=== PATIENT | female | born 1960 | race Caucasian/White ===

== ENCOUNTER → 2018-11-08 | Outpatient (CLI) | payer MEDICARE, OTHER ==
--- NOTE | 2018-11-09 15:45 | MM ---
Reason for exam: additional evaluation requested from prior study. Last mammogram was performed 3 years and 8 months ago. History: Patient is postmenopausal and has history of other cancer at age 52. Family history of breast cancer in maternal grandmother, breast cancer in paternal grandmother, and breast cancer in paternal aunt. Benign MG stereo VAD BX LT of the left breast, March 14, 2015. Patient had Lymphoma at age 55. Physical Findings: Nurse did not find any significant physical abnormalities on exam. MG 3D Diag Mammo W/Cad QING Bilateral CC and MLO view(s) were taken. Prior study comparison: March 01, 2015, left breast MG work up mamm w CAD LT. February 16, 2015, bilateral MG screening mammo w CAD. The breast tissue is heterogeneously dense. This may lower the sensitivity of mammography. There are benign-appearing round vascular calcification bilaterally. Chronic nodularity left breast. No discrete abnormality. These results were verbally communicated with the patient and result sheet given to the patient on 11/08/18. ASSESSMENT: Benign, BI-RAD 2 RECOMMENDATION: Routine screening mammogram of both breasts in 1 year.
== END | disposition home or self-care (01) ==
LOC: RADMAMWWP 09:00
PROVIDERS: ATTEND Internal Medicine
DX: R92.8 Other abnormal and inconclusive findings on diagnostic imaging of breast (principal)
CPT/HCPCS: 77066; G0279; 77062

== ENCOUNTER → 2019-12-09 | Outpatient (CLI) | payer MEDICARE, OTHER ==
--- NOTE | 2019-12-12 08:22 | MM ---
Reason for exam: screening (asymptomatic). Last mammogram was performed 1 year and 1 month ago. History: Patient is postmenopausal and has history of other cancer at age 52. Family history of breast cancer in maternal grandmother, breast cancer in paternal grandmother, and breast cancer in paternal aunt. Benign MG stereo VAD BX LT of the left breast, March 14, 2015. Physical Findings: A clinical breast exam by your physician is recommended on an annual basis and results should be correlated with mammographic findings. MG Screening Mammo w CAD Bilateral CC and MLO view(s) were taken. Prior study comparison: November 08, 2018, bilateral MG 3d diag mammo w/cad QING. March 01, 2015, left breast MG work up mamm w CAD LT. The breast tissue is heterogeneously dense. This may lower the sensitivity of mammography. No suspicious abnormality. Left biopsy marker noted. No significant changes when compared with prior studies. ASSESSMENT: Negative, BI-RAD 1 RECOMMENDATION: Routine screening mammogram of both breasts in 1 year.
== END | disposition home or self-care (01) ==
LOC: RADMAMWWP 10:45
PROVIDERS: ATTEND Internal Medicine
DX: Z12.31 Encounter for screening mammogram for malignant neoplasm of breast (principal)
CPT/HCPCS: 77067

== ENCOUNTER 2021-09-14 08:18 | Emergency (ER) | payer MEDICARE, OTHER ==
[2021-09-14] MEDS ORDERED: SODIUM CHLORIDE 0.9% 500 ML 500 ML IV STA (08:31)
--- NOTE | 2021-09-14 08:36 | ED ---
General Adult HPI - General Chief complaint: Upper Respiratory Infection Stated complaint: Covid+ Time Seen by Provider: 09/14/21 08:20 Source: patient, RN notes reviewed, old records reviewed Mode of arrival: wheelchair Limitations: no limitations - History of Present Illness Initial comments: This a 60-year-old female presents emergency Department with a past medical history significant for some cognitive impairment and history of non-Hodgkin's lymphoma. Patient states she started having symptoms on Thursday of the upper respiratory infection and on she lost her taste that she was tested for COVID and she tested positive. Patient states today she was having a bowel movement she passed out momentarily and she wanted to come in to be evaluated and get the antibiotics for the COVID. Patient denies any shortness of breath or chest pain or palpitations. Patient denies any other medical problems in the ones listed. Patient states she takes no medications. Patient denies smoking. Patient states after she passed out she woke up and felt back to her baseline. Patient states she bumped her cheek when she passed out but it is only minimally tender this point she has no problems seeing she is no double vision. - Related Data Home Medications Medication Instructions Recorded Confirmed Cetirizine HCl 10 mg PO BID 09/14/21 09/14/21 Donepezil HCl [Aricept] 5 mg PO HS 09/14/21 09/14/21 Omeprazole 40 mg PO HS 09/14/21 09/14/21 Simvastatin [Zocor] 20 mg PO HS 09/14/21 09/14/21 Allergies Allergy/AdvReac Type Severity Reaction Status Date / Time lorazepam [From Ativan] Allergy Confusion Verified 09/14/21 09:40 Review of Systems ROS Statement: Those systems with pertinent positive or pertinent negative responses have been documented in the HPI. ROS Other: All systems not noted in ROS Statement are negative. Past Medical History Past Medical History: Cancer, GERD/Reflux, Memory Impairment, Renal Disease Additional Past Medical History / Comment(s): HX ANEMIA. HX NON HODGKINS LYMPHONA 2009 HAD CHEMO IN 2010. MEMORY IMPAIRMENT R/T COMA CAUSED BY CHEMO PER SISTER 2011. PEPTIC ULCER DISEASE History of Any Multi-Drug Resistant Organisms: C-DIFF Date of last positivie culture/infection: MDRO Source:: STOOL Past Surgical History: Orthopedic Surgery, Tubal Ligation Additional Past Surgical History / Comment(s): MEDIPORT INSERTED AND REMOVED. PEG TUBE INSERTED AND REMOVED. SPLEENECTOMY. ORIF RT WRIST. BRONCHOSCOPY. TRACHEOSTOMY/NOW CLOSED Past Anesthesia/Blood Transfusion Reactions: No Reported Reaction Past Psychological History: Anxiety Smoking Status: Never smoker Past Alcohol Use History: None Reported Past Drug Use History: None Reported - Past Family History Father Family Medical History: Cancer Mother Family Medical History: Cancer Brother(s) Family Medical History: Cancer Sister(s) Family Medical History: Cancer General Exam - General Exam Comments Initial Comments: GENERAL: Patient is well-developed and well-nourished. Patient is nontoxic and well- hydrated and is in no acute distress. ENT: Neck is soft and supple. No significant lymphadenopathy is noted. Oropharynx is clear. Moist mucous membranes. Neck has full range of motion without eliciting any pain. Patient's got a small contusion on the left cheek EYES: The sclera were anicteric and conjunctiva were pink and moist. Extraocular movements were intact and pupils were equal round and reactive to light. Eyelids were unremarkable. PULMONARY: Unlabored respirations. Good breath sounds bilaterally. No audible rales rhonchi or wheezing was noted. CARDIOVASCULAR: There is a regular rate and rhythm without any murmurs gallops or rubs. ABDOMEN: Soft and nontender with normal bowel sounds. SKIN: Skin is clear with no lesions or rashes and otherwise unremarkable. NEUROLOGIC: Patient is alert and oriented x3. Cranial nerves II through XII are grossly intact. Motor and sensory are also intact. Normal speech, volume and content. Symmetrical smile. MUSCULOSKELETAL: Normal extremities with adequate strength and full range of motion. LYMPHATICS: No significant lymphadenopathy is noted PSYCHIATRIC: Normal psychiatric evaluation. Limitations: no limitations Course Vital Signs 09/14/21 09/14/21 09/14/21 08:19 08:35 08:44 Temperature 97.8 F Pulse Rate 83 Pulse Rate [ 82 Sitting] Pulse Rate [ 99 Standing] Pulse Rate [ 88 Supine] Respiratory 19 Rate Blood Pressure 122/73 Blood Pressure 123/93 [Sitting] Blood Pressure 117/89 [Standing] Blood Pressure 126/89 [Supine] O2 Sat by Pulse 92 L 98 Oximetry Medical Decision Making - Medical Decision Making EKG shows normal sinus rhythm at 75 bpm OR interval 160 QRS is 82 QT interval 428 QTC is 477. Patient's EKG shows no ST segment elevation or depression. Patient has Q waves in leads 3 and aVF. Chest x-ray shows no acute abnormality. Patient received monoclonal antibodies in the emergency department - Lab Data Result diagrams: 09/14/21 08:43 09/14/21 08:43 Lab Results 09/14/21 09/14/21 09/14/21 Range/Units 08:43 08:43 08:43 WBC 8.1 (3.8-10.6) k/uL RBC 4.96 (3.80-5.40) m/uL Hgb 14.6 (11.4-16.0) gm/dL Hct 45.5 (34.0-46.0) % MCV 91.8 (80.0-100.0) fL MCH 29.5 (25.0-35.0) pg MCHC 32.1 (31.0-37.0) g/dL RDW 12.8 (11.5-15.5) % Plt Count 238 (150-450) k/uL MPV 8.2 Neutrophils % 66 % Lymphocytes % 20 % Monocytes % 9 % Eosinophils % 1 % Basophils % 1 % Neutrophils # 5.3 (1.3-7.7) k/uL Lymphocytes # 1.6 (1.0-4.8) k/uL Monocytes # 0.8 (0-1.0) k/uL Eosinophils # 0.1 (0-0.7) k/uL Basophils # 0.1 (0-0.2) k/uL Sodium 138 (137-145) mmol/L Potassium 5.1 (3.5-5.1) mmol/L Chloride 107 (98-107) mmol/L Carbon Dioxide 24 (22-30) mmol/L Anion Gap 7 mmol/L BUN 18 H (7-17) mg/dL Creatinine 1.35 H (0.52-1.04) mg/dL Est GFR (CKD-EPI)AfAm 50 (>60 ml/min/1.73 sqM) Est GFR (CKD-EPI)NonAf 43 (>60 ml/min/1.73 sqM) Glucose 109 H (74-99) mg/dL Calcium 10.0 (8.4-10.2) mg/dL Magnesium 1.9 (1.6-2.3) mg/dL Total Bilirubin 0.6 (0.2-1.3) mg/dL AST 28 (14-36) U/L ALT 13 (4-34) U/L Alkaline Phosphatase 163 H (38-126) U/L Troponin I <0.012 (0.000-0.034) ng/mL Total Protein 7.9 (6.3-8.2) g/dL Albumin 4.3 (3.5-5.0) g/dL Disposition Clinical Impression: Vasovagal syncope, COVID Disposition: HOME SELF-CARE Condition: Good Instructions (If sedation given, give patient instructions): Syncope (ED), Coronavirus Disease 2019 (COVID-19) Additional Instructions: Patient is to return for any difficulty breathing. Patient is also to return she's having any chest pain or palpitations. Is patient prescribed a controlled substance at d/c from ED?: No Referrals: Erich Cohen MD [Primary Care Provider] - 1-2 days Time of Disposition: 09:45
[2021-09-14 08:58] LABS: Basophils # (A) 0.1 k/uL (0-0.2); Basophils % (A) 1 %; Eosinophils # (A) 0.1 k/uL (0-0.7); Eosinophils % (A) 1 %; HCT 45.5 % (34.0-46.0); HGB 14.6 gm/dL (11.4-16.0); Lymphocytes # (A) 1.6 k/uL (1.0-4.8); Lymphocytes % (A) 20 %; MCH 29.5 pg (25.0-35.0); MCHC 32.1 g/dL (31.0-37.0); MCV 91.8 fL (80.0-100.0); Mean Platelet Volume 8.2; Monocytes # (A) 0.8 k/uL (0-1.0); Monocytes % (A) 9 %; Neutrophils # (A) 5.3 k/uL (1.3-7.7); Neutrophils % (A) 66 %; Platelet Count 238 k/uL (150-450); RBC 4.96 m/uL (3.80-5.40); RDW 12.8 % (11.5-15.5); WBC 8.1 k/uL (3.8-10.6)
[2021-09-14 09:12] LABS: Albumin 4.3 g/dL (3.5-5.0); Magnesium 1.9 mg/dL (1.6-2.3); Potassium 5.1 mmol/L (3.5-5.1); Total Bilirubin 0.6 mg/dL (0.2-1.3); Total Protein 7.9 g/dL (6.3-8.2)
[2021-09-14] MEDS ORDERED: CASIRIVIMAB/IMDEVIMAB (EUA) 1,200 MG in SODIUM CHLORIDE 0.9% 100 ML IVPB ONE (09:15)
--- NOTE | 2021-09-14 09:19 | XR ---
EXAMINATION TYPE: XR chest 1V portable DATE OF EXAM: 09/14/2021 COMPARISON: 11/28/2012 INDICATION: Chest pain TECHNIQUE: Single frontal view of the chest is obtained. FINDINGS: The heart size is normal. The pulmonary vasculature is normal. There may be some mild blunting of the left costophrenic angle. This may be chronic. IMPRESSION: 1. Mild blunting left costophrenic angle may be chronic. 2. An acute pulmonary process is not otherwise evident.
[2021-09-14] MEDS ORDERED: SODIUM CHLORIDE 0.9% 50 ML IVPB ONE (10:00)
[2021-09-14 10:59] VITALS: BP 126/88; PULSE 86; RESP 16; TEMP 98.8
== END 2021-09-14 10:59 | disposition home or self-care (01) ==
LOC: EC 08:18
DX: U07.1 COVID-19 (principal); R55 Syncope and collapse; K21.9 Gastro-esophageal reflux disease without esophagitis; Z79.899 Other long term (current) drug therapy
CPT/HCPCS: 36415; 93005; 80053; 83735; 84484; 85025; 71045; 99284; 96365; 96361; Q0243

== ENCOUNTER → 2022-05-23 | Outpatient (CLI) | payer MEDICARE ==
--- NOTE | 2022-05-23 09:35 | BD ---
EXAMINATION TYPE: Axial Bone Density DATE OF EXAM: 05/23/2022 COMPARISON: NONE CLINICAL HISTORY: 61 year old Female. ICD-10 CODE: Z78.[address] Height: 67 Weight: 193.1 FRAX RISK QUESTIONS: Alcohol (3 or more units per day): no Family History (Parent hip fracture): no Glucocorticoids (More than 3mos): no (Ex: prednisone, prednisolone, methylprednisolone, dexamethasone, and hydrocortisone). History of Fracture in Adulthood: yes Secondary Osteoporosis: 1. Type 1 Diabetes: no 2. Hyperthyroidism: no 3. Menopause before 45: no 4. Malnutrition: no 5. Chronic liver disease: no Rheumatoid Arthritis: no Current Tobacco Use: no RISK FACTORS HISTORY OF: Surgery to Spine/Hip(right/left)/Wrist (right/left): no Family History of Osteoporosis: no Active: no Diet low in dairy products/other sources of calcium: yes Postmenopausal woman: yes Lost more than 2 inches in height since high school: yes MEDICATIONS: Additional History: EXAM MEASUREMENTS: Bone mineral densitometry was performed using the [employer] System. Bone mineral density as measured about the Lumbar spine is: ----- L1-L4(G/cm2): 0.939 T Score Values are as follows: ----- L1: -2.1 ----- L2: -2.8 ----- L3: -1.3 ----- L4: -1.8 ----- L1-L4: -2.0 Bone mineral density : baseline Bone mineral density about the R hip (g/cm2): 0.722 Bone mineral density about the L hip (g/cm2): 0.669 T Score values are as follows: -----R Neck: -2.3 -----L Neck: -2.7 -----R Total: -2.2 -----L Total: -2.5 Bone mineral density : baseline FRAX%s: The graph provided illustrates a 20.5% chance for a major osteoporotic fx and a 4.6% chance f or the hips probability for fx in 10 years time. IMPRESSION: Osteoporosis (T Score less than -2.5). There is increased fracture risk and therapy is usually indicated based on age. Re-Screen 1-2 years. NOTE: T-SCORE=SD OF THE YOUNG ADULT MEAN.
--- NOTE | 2022-05-26 08:08 | MM ---
Reason for Exam: Screening (asymptomatic). Last mammogram was performed 2 year(s) and 5 month(s) ago. Patient History: Menarche at age 16. First Full-Term at age 22. Hysterectomy at age 54. Postmenopausal. Patient has history of breast feeding. Other cancer, age 52. 03/14/2015, Benign Core Biopsy on the left side. Paternal grandmother had breast cancer. Maternal grandmother had breast cancer. Paternal aunt had breast cancer. Risk Values: Rosaline 5 year model risk: 1.4%. NCI Lifetime model risk: 7.1%. Prior Study Comparison: 02/16/2015 Bilateral Screening Mammogram, [facility]. 03/01/2015 Left Diagnostic Mammogram, [facility]. 11/08/2018 Bilateral Diagnostic Mammogram, [facility]. 12/09/2019 Bilateral Screening Mammogram, [facility]. Tissue Density: The breast tissue is heterogeneously dense. This may lower the sensitivity of mammography. Findings: Analyzed By CAD. 4 markers in the left breast. Benign vascular calcifications present. No suspicious groups of microcalcifications, spiculated or lobular masses, architectural distortion or other secondary signs of malignancy are mammographically apparent. Overall Assessment: Benign, BI-RAD 2 Management: Screening Mammogram of both breasts in 1 year. A negative mammogram report should not preclude additional follow up of suspicious palpable abnormalities. Patient should continue monthly self breast exam. A clinical breast exam by your physician is recommended on an annual basis and results should be correlated with mammographic findings. Electronically signed and approved by: Juve Hoyt D.O. Radiologis
== END | disposition home or self-care (01) ==
LOC: RADMAMWWP 06:45
PROVIDERS: ATTEND Internal Medicine
DX: Z12.31 Encounter for screening mammogram for malignant neoplasm of breast (principal); Z78.0 Asymptomatic menopausal state; Z80.3 Family history of malignant neoplasm of breast
CPT/HCPCS: 77063; 77067; 77080

== ENCOUNTER → 2022-05-26 | Outpatient (CLI) | payer MEDICARE ==
--- NOTE | 2022-05-27 10:12 | CA ---
Transthoracic Echo Report Name: Mansi Johnson Age: 61 Gender: F : 1960 Exam Date: 05/26/2022 08:33 Exam Location: [facility] Ht (in): 67 Wt (lb): 194 Ordering Physician: Erich Cohen MD Attending/Referring Phys: Slot Machine Key Person Mahsa Bermudez RDCS Procedure CPT: Indications: G45.9 TIA Cardiac Hx: Technical Quality: Good Contrast 1: Total Dose (mL): Contrast 2: Total Dose (mL): MEASUREMENTS (Male / Female) Normal Values 2D ECHO LV Diastolic Diameter PLAX 5.0 cm 4.2 - 5.9 / 3.9 - 5.3 cm LV Systolic Diameter PLAX 3.5 cm IVS Diastolic Thickness 1.1 cm 0.6 - 1.0 / 0.6 - 0.9 cm LVPW Diastolic Thickness 1.0 cm 0.6 - 1.0 / 0.6 - 0.9 cm LV Relative Wall Thickness 0.4 RV Internal Dim ED PLAX 3.3 cm LA Systolic Diameter LX 4.0 cm 3.0 - 4.0 / 2.7 - 3.8 cm LA Volume 40.0 cm??? 18 - 58 / 22 - 52 cm??? M-MODE Aortic Root Diameter MM 3.2 cm MV E Point Septal Separation 0.6 cm AV Cusp Separation MM 2.2 cm DOPPLER AV Peak Velocity 108.5 cm/s AV Peak Gradient 4.7 mmHg MV Area PHT 2.9 cm??? Mitral E Point Velocity 94.4 cm/s Mitral A Point Velocity 113.3 cm/s Mitral E to A Ratio 0.8 MV Deceleration Time 263.3 ms MV E' Velocity 7.4 cm/s Mitral E to MV E' Ratio 12.8 TR Peak Velocity 238.2 cm/s TR Peak Gradient 22.7 mmHg Right Ventricular Systolic Press 27.3 mmHg FINDINGS Left Ventricle Left ventricular ejection fraction is estimated at 55-60 %. Left ventricular cavity size normal. Left ventricular wall thickness normal. Right Ventricle Mild right ventricular dilatation. Right ventricular systolic pressure within normal limits. Right Atrium Normal right atrial size. Left Atrium Normal left atrial size. No evidence for an atrial septal defect. Mitral Valve Structurally normal mitral valve. No mitral stenosis, regurgitation or prolapse. Aortic Valve Trileaflet aortic valve. No aortic valve stenosis or regurgitation. Tricuspid Valve Mild tricuspid regurgitation. Pulmonic Valve Mild pulmonic regurgitation. Pericardium Normal pericardium. No pericardial effusion. Aorta Normal size aortic root and proximal ascending aorta. CONCLUSIONS Normal LV size and systolic function. No significant abnormality in the Doppler exam. No pericardial effusion Previewed by: Dr. Shelly Ann MD (Electronically Signed) Final Date: 27 May 2022 10:12
== END | disposition home or self-care (01) ==
LOC: RADECHMAIN 07:51
PROVIDERS: ATTEND Internal Medicine
DX: I07.1 Rheumatic tricuspid insufficiency (principal)
CPT/HCPCS: 93306

== ENCOUNTER → 2022-08-18 | Outpatient (CLI) | payer MEDICARE, OTHER ==
--- NOTE | 2022-08-18 10:34 | US ---
EXAMINATION TYPE: US abdomen complete DATE OF EXAM: 08/18/2022 COMPARISON: US CLINICAL HISTORY: N18.30 ckd stage 3. CKD. Hx splenectomy, stomach surgery in 2010. TECHNIQUE: Multiple sonographic images of the abdomen are obtained. FINDINGS: EXAM MEASUREMENTS: Liver Length: 14.1 cm Gallbladder Wall: 0.20 cm CBD: 0.61 cm Right Kidney: 9.2 x 4.9 x 4.6 cm Left Kidney: 9.0 x 4.7 x 4.9 cm AIR LIFT OPERATOR NOTES: Limited due to gas and patient body habitus. Pancreas: Limited Liver: Appears very coarse. Images taken intercostally. No definitive lesion identified. Gallbladder: Appears anechoic. No pericholecystic fluid or wall thickening. Evidence for sonographic Messina's sign: No CBD: Measures upper limits. Spleen: Surgically absent Right Kidney: Anechoic connective appearance medially, probable hydro. Seen post void as well. No def initive contour deforming mass. No shadowing calculi. Left Kidney: Anechoic connective appearance medially, probable hydro. Seen post void as well. No defi nitive contour deforming mass. No shadowing calculi. Upper IVC: Limited Abd Aorta: Appears wnl IMPRESSION: 1. Probable mild bilateral hydronephrosis. No renal shadowing calculi. Consider further evaluation w ith CT abdomen pelvis. 2. Spleen is surgically absent.
== END | disposition home or self-care (01) ==
LOC: RADUSWWP 07:55
PROVIDERS: ATTEND Internal Medicine
DX: N18.30 Chronic kidney disease, stage 3 unspecified (principal)
CPT/HCPCS: 76700

== ENCOUNTER → 2022-09-03 | Outpatient (CLI) | payer MEDICARE, OTHER ==
--- NOTE | 2022-09-03 20:30 | CT ---
EXAMINATION TYPE: CT abdomen pelvis wo con CT DLP: 587.40 mGycm, Automated exposure control for dose reduction was used. DATE OF EXAM: 09/03/2022 5:47 PM COMPARISON: None CLINICAL INDICATION:Female, 61 years old with history of N13.30 UNSPECIFIED HYDRONEPHROSIS; hydroneph rosis. TECHNIQUE: Axial CT of the abdomen and pelvis. Sagittal and coronal reformats were created on a [employer] workstation. Contrast used: None Oral contrast used: without Oral Contrast FINDINGS: LOWER CHEST: Left lower lobe calcified granuloma. Mild cardiomegaly. ABDOMEN LIVER: Unremarkable GALLBLADDER AND BILE DUCTS: Unremarkable. PANCREAS: Unremarkable. SPLEEN: Unremarkable. ADRENAL GLANDS: Unremarkable. KIDNEYS AND URETERS: No evidence of hydronephrosis or renal calculus. Multiple cysts are seen in the renal sinuses left greater than right likely representing peripelvic renal cysts. PELVIS BLADDER: Unremarkable REPRODUCTIVE: The uterus is surgically absent. ABDOMEN & PELVIS STOMACH AND BOWEL: No evidence of bowel obstruction. Small hiatal hernia. Surgical changes gastric [place] men. Scattered clonic diverticula are present. Scattered small bowel feces seen throughout the abdome n. PERITONEUM: No evidence of pneumoperitoneum or free fluid. VASCULATURE: No evidence of aortic aneurysm. Mild atherosclerosis of the arterial vasculature. MUSCULOSKELETAL: No acute osseous abnormalities, multilevel disc degeneration changes. LYMPH NODES: No gross evidence for lymphadenopathy. SOFT TISSUE/ABDOMINAL WALL: Multiple ventral wall hernias containing fat measuring up to 5.2 x 3.4 cm more superiorly. IMPRESSION: 1. No evidence for acute abdominal process. 2. No evidence of hydronephrosis, bilateral peripelvic renal cysts. 3. Multiple ventral wall hernias containing fat. 4. Postsurgical changes with gastric lumen with small hiatal hernia. 5. Colonic diverticulosis.
== END | disposition home or self-care (01) ==
LOC: RADCTMAIN 17:14
PROVIDERS: ATTEND Urology
DX: K57.30 Diverticulosis of large intestine without perforation or abscess without bleeding (principal); K44.9 Diaphragmatic hernia without obstruction or gangrene
CPT/HCPCS: 74176

== ENCOUNTER → 2022-09-29 | Outpatient (CLI) | payer MEDICARE, OTHER ==
[2022-09-29 18:42] LABS: ALT 16 U/L (8-44); AST 25 U/L (13-35); African American GFR (CKD) 50.2 (60.0-200.0); Albumin 4.5 g/dL (3.8-4.9); Albumin/Globulin Ratio 1.66 (1.60-3.17); Alkaline Phosphatase 126 U/L (41-126); BUN/Creat Ratio 12.41 Ratio (12.00-20.00); Blood Urea Nitrogen 16.5 mg/dL (9.0-27.0); Calcium 9.2 mg/dL (8.7-10.3); Carbon Dioxide 23.3 mmol/L (20.0-27.5); Chloride 108 mmol/L (96-109); Chol/HDL Ratio 2.39 Ratio; Globulin 2.7 g/dL (1.6-3.3); Glucose 99 mg/dL (70-110); LDL Cholesterol,Calculated 86.1 mg/dL (0.0-131.0); Non-African American GFR(CKD) 43.3 (60.0-200.0); Potassium 5.2 mmol/L (3.5-5.5); Sodium 141 mmol/L (135-145); Total Protein 7.2 g/dL (6.2-8.2)
== END | disposition home or self-care (01) ==
LOC: LABWHC1 11:30
PROVIDERS: ATTEND Internal Medicine Interventional Cardiology
DX: I10 Essential (primary) hypertension (principal); E78.2 Mixed hyperlipidemia
CPT/HCPCS: 36415; 80053; 80061

== ENCOUNTER → 2023-04-08 | Outpatient (CLI) | payer OTHER, MEDICARE ==
[2023-04-08 16:13] LABS: ALT 9 U/L (8-44); AST 19 U/L (13-35); Albumin 4.3 d/dL (3.8-4.9); Albumin/Globulin Ratio 1.48 Ratio (1.60-3.17); Alkaline Phosphatase 131 U/L (41-126); BUN/Creat Ratio 13.67 Ratio (12.00-20.00); Blood Urea Nitrogen 20.5 mg/dL (9.0-27.0); Carbon Dioxide 23.2 mmol/L (21.6-31.8); Chloride 108 mmol/L (96-109); Chol/HDL Ratio 2.08 Ratio; Globulin 2.9 d/dL (1.6-3.3); Glucose 94 mg/dL (70-110); LDL Cholesterol,Calculated 61.2 mg/dL (0.0-131.0); Sodium 141 mmol/L (135-145); Total Bilirubin 0.4 mg/dL (0.3-1.2); Total Protein 7.2 d/dL (6.2-8.2); VLDL Calculation 17.58 mg/dL (5.00-40.00)
== END | disposition home or self-care (01) ==
LOC: LABWHC1 10:21
PROVIDERS: ATTEND Internal Medicine Interventional Cardiology
DX: E78.2 Mixed hyperlipidemia (principal)
CPT/HCPCS: 36415; 80053; 80061

== ENCOUNTER → 2023-04-24 | Outpatient (CLI) | payer MEDICARE, OTHER ==
[~2023-04-24] MED LIST: DENOSUMAB 60 MG/ML 1 ML SYRINGE SQ NR
[2023-04-24 11:19] VITALS: BP 125/82; PULSE 74; RESP 16; TEMP 97.6
== END ==
LOC: PROCWHC3 11:07
PROVIDERS: ATTEND Internal Medicine
DX: M81.0 Age-related osteoporosis without current pathological fracture (principal)
CPT/HCPCS: 96372; J0897

== ENCOUNTER → 2023-10-01 | Outpatient (CLI) | payer MEDICARE, OTHER ==
[2023-10-01 16:43] LABS: ALT 11 U/L (8-44); AST 19 U/L (13-35); Chol/HDL Ratio 2.22 Ratio; LDL Cholesterol,Calculated 71.1 mg/dL (0.0-131.0)
== END | disposition home or self-care (01) ==
LOC: LABWHC1 09:47
PROVIDERS: ATTEND Internal Medicine Interventional Cardiology
DX: E78.2 Mixed hyperlipidemia (principal)
CPT/HCPCS: 36415; 80061; 84450; 84460

== ENCOUNTER → 2024-06-10 | Outpatient (CLI) | payer MEDICARE, OTHER | END | disposition home or self-care (01) | LOC: LABPRL | PROVIDERS: ATTEND Internal Medicine Hematology & Oncology | CPT/HCPCS: 82607; 82728; 82784; 83010; 83540; 83550; 83615; 84165; 85045 ==

== ENCOUNTER → 2024-06-17 | Outpatient (CLI) | payer MEDICARE, OTHER ==
--- NOTE | 2024-07-11 15:22 | MR ---
Site ID synapse default Patient Mansi Johnson M ID [id number] 1960 Age/Gender: 63Y, F Order # N/A Procedure MRI BRAIN W/WO CONTRAST Date 06/17/2024 11:32:54 AM INDICATION: Patient age: Female; 63 year old; Reason for study: Visual disturbance COMPARISON: CT brain 11/26/2012. TECHNIQUE: Multi planar, multi sequence imaging was performed through the brain. The patient was then given 9 cc of Gadavist intravenously and multi planar, T1 fat-saturation images were obtained. FINDINGS: The berrios-white junctions, ventricular system, basal cisterns appear unremarkable. Diffusion-weighted imaging shows no evidence of restricted diffusion to suggest acute/subacute infarct. Partial empty se lla. Incidental small caval septum pellucidum. Normal posterior pituitary bright spot. Optic chiasm a ppears unremarkable. Intracranial arterial flow voids are maintained. Midline structures show no abno rmality. Remote injury to the right temporal lobe with encephalomalacia and gliosis demonstrated. Sma ll remote lacunar infarct within the left cerebellar hemisphere. Few foci of T2/FLAIR hyperintense si gnal within the subcortical white matter in the bilateral frontal lobes and right parietal lobe. Exam ple is a 5 mm focus within the right frontal lobe cortical white matter (series 601, image 23). Appro ximately 5 foci identified. No corresponding enhancement. The susceptibility weighted images demonstrate multiple punctate foci secondary artifact within the b ilateral frontal and parietal lobes predominantly consistent with prior microhemorrhage. After admini stration of gadolinium, no abnormal enhancement is seen. Age-appropriate cerebral parenchymal volume. The bone marrow signal is within normal limits. The paranasal sinuses and globes are unremarkable. IMPRESSION: 1. No evidence of intracranial mass, acute/subacute infarct, or abnormal enhancement. 2. Few nonspecific white matter changes, likely related to small vessel ischemic disease 3. Remote injury to the right temporal lobe with a soft malacia. Additional small remote lacunar infa rct within the left cerebellar hemisphere. 4. Evidence of prior scattered microhemorrhage.
== END | disposition home or self-care (01) ==
LOC: RADMRIMAIN 08:15
PROVIDERS: ATTEND Internal Medicine
DX: H53.9 Unspecified visual disturbance (principal); R90.82 White matter disease, unspecified; Z86.73 Personal history of transient ischemic attack (TIA), and cerebral infarction without residual deficits
CPT/HCPCS: 70553; A9585

== ENCOUNTER → 2024-07-13 | Outpatient (CLI) | payer MEDICARE, OTHER ==
--- NOTE | 2024-07-13 10:01 | BD ---
EXAMINATION TYPE: Axial Bone Density DATE OF EXAM: 07/13/2024 CLINICAL HISTORY: 63 years old Female. ICD-10 CODE: M81.0 OSTEOPOROSIS Height: 66 Weight: 180 FRAX RISK QUESTIONS: History of Fracture in Adulthood: yes Secondary Osteoporosis: no RISK FACTORS HISTORY OF: Surgery to Spine/Hip(right/left)/Wrist (right/left): no MEDICATIONS: Thyroid Medications: no Osteoporosis Medications: yes Which medication: Boniva How Lon yr EXAM MEASUREMENTS: Bone mineral densitometry was performed using the [employer] System. Bone mineral density as measured about the Lumbar spine is: ----- L1-L4(G/cm2): 0.925 T Score Values are as follows: ----- L1: -2.0 ----- L2: -2.9 ----- L3: -2.0 ----- L4: -1.9 ----- L1-L4: -2.1 Z Score Values are as follows: ----- L1: -1.1 ----- L2: -2.1 ----- L3: -1.2 ----- L4: -1.0 ----- L1-L4: -1.3 Bone mineral density has: Decreased -1.5% since study of: 05/23/2022 Bone mineral density about the R hip (g/cm2): 0.719 Bone mineral density about the L hip (g/cm2): 0.665 T Score values are as follows: -----R Neck: -2.4 -----L Neck: -2.7 -----R Total: `-2.3 -----L Total: -2.7 Z Score values are as follows: -----R Neck: -1.4 -----L Neck: -1.7 -----R Total: -1.6 -----L Total: -2.1 Bone mineral density has: Decreased -2.7% since study of: 05/23/2022 FRAX%s: The graph provided illustrates a 22.2% chance for a major osteoporotic fx and a 5.3% chance f or the hips probability for fx in 10 years time. IMPRESSION: Osteoporosis (T Score less than -2.5). There is increased fracture risk and therapy is usually indicated based on age. Re-Screen 1-2 years. NOTE: T-SCORE=SD OF THE YOUNG ADULT MEAN.
--- NOTE | 2024-07-14 18:59 | MM ---
Reason for Exam: Screening (asymptomatic). Last mammogram was performed 1 year(s) and 2 month(s) ago. Patient History: Menarche at age 16. First Full-Term at age 22. Hysterectomy at age 54. Postmenopausal. Patient has history of breast feeding. Other cancer, age 52. 03/14/2015, Benign Core Biopsy on the left side. Paternal grandmother had breast cancer. Maternal grandmother had breast cancer. Paternal aunt had breast cancer. Risk Values: Rosaline 5 year model risk: 1.5%. NCI Lifetime model risk: 6.7%. Prior Study Comparison: 12/09/2019 Bilateral Screening Mammogram, [facility]. 05/23/2022 Bilateral MG 3D screening mammo w/cad, [facility]. 05/26/2023 Bilateral MG 3D screening mammo w/cad, [facility]. Tissue Density: The breasts are heterogeneously dense, which may obscure small masses. Findings: Analyzed By CAD. Areas of bilateral asymmetric density are unchanged. Microclip left breast from prior biopsy. There is no suspicious group of microcalcifications or new suspicious mass in either breast. Overall Assessment: Benign, BI-RAD 2 Management: Screening Mammogram of both breasts in 1 year. . Patient should continue monthly self-breast exams. A clinical breast exam by your physician is recommended on an annual basis. This exam should not preclude additional follow-up of suspicious palpable abnormalities. Note on Rosaline scores and lifetime risk: 1. A Rosaline score greater than 3% is considered moderate risk. If this is the case, consider specialist referral to assess eligibility for a risk reducing agent. 2. If overall lifetime risk for the development of breast cancer is 20% or higher, the patient may qualify for future screening with alternating mammogram and breast MRI. Electronically signed and approved by: Ramona Marroquin M.D. Radiologist
== END | disposition home or self-care (01) ==
LOC: RADMAMWWP 07:40
PROVIDERS: ATTEND Internal Medicine
DX: Z12.31 Encounter for screening mammogram for malignant neoplasm of breast (principal); M81.0 Age-related osteoporosis without current pathological fracture; Z78.0 Asymptomatic menopausal state; Z80.3 Family history of malignant neoplasm of breast; R92.333 Mammographic heterogeneous density, bilateral breasts
CPT/HCPCS: 77063; 77067; 77080

== ENCOUNTER → 2024-07-25 | Outpatient (CLI) | payer MEDICARE, OTHER ==
[2024-07-25 14:02] VITALS: BP 120/81; PULSE 93; RESP 16; TEMP 98.2
[2024-07-25] MEDS: DENOSUMAB 60 MG/ML 1 ML SYRINGE SQ NR (14:02)
== END ==
LOC: PROCWHC3 13:44
PROVIDERS: ATTEND Internal Medicine
DX: M81.0 Age-related osteoporosis without current pathological fracture (principal)
CPT/HCPCS: 96372; J0897

== ENCOUNTER → 2024-10-10 | Outpatient (CLI) | payer MEDICARE, OTHER ==
--- NOTE | 2024-10-10 16:39 | US ---
EXAMINATION TYPE: US mass soft tissue chest/back DATE OF EXAM: 10/10/2024 COMPARISON: NONE CLINICAL INDICATION: Female, 63 years old with history of R22.2 MASS OR LUMP; Lump on right upper joaquín k x 2 weeks Technique: Grayscale and color Doppler imaging of the palpable area in the upper back. FINDINGS: Right upper back - 7.6 x 0.9 x 6.6cm superficial palpable area seen IMPRESSION: Palpable area in the posterior back that represent a lipoma. This can be confirmed with C T or MRI imaging. [facility], , 10/10/2024 4:37 PM
== END | disposition home or self-care (01) ==
LOC: RADUSWWP 15:44
PROVIDERS: ATTEND Internal Medicine
DX: D17.79 Benign lipomatous neoplasm of other sites (principal); R22.2 Localized swelling, mass and lump, trunk